=== PATIENT | female | born 2000 | race Caucasian/White ===

== ENCOUNTER 2020-12-24 21:23 | Emergency (ER) | payer SELFPAY ==
[~2020-12-24] VITALS: Ht 154.9 cm; Wt 68.0 kg
[2020-12-24] MEDS ORDERED: LIDOCAINE HCL 1% 20ML VIAL (Pyxis) INJ INFIL ONE (22:00)
[2020-12-24 23:14] VITALS: BP 119/68
== END 2020-12-24 23:15 | disposition home or self-care (01) ==
LOC: ER 21:23
DX: M79.644 Pain in right finger(s) (principal)
CPT/HCPCS: 12001; 73130; 99283; J3490; Z7610